=== PATIENT | female | born 1960 | race Hispanic/Latino ===

== ENCOUNTER → 2017-07-23 | Outpatient (CLI) | payer BC | END | disposition home or self-care (01) | LOC: RAH 13:49 | PROVIDERS: ATTEND Physical Medicine & Rehabilitation | DX: M50.122 Cervical disc disorder at C5-C6 level with radiculopathy (principal); M50.123 Cervical disc disorder at C6-C7 level with radiculopathy | CPT/HCPCS: 72141 ==

== ENCOUNTER → 2020-04-18 | Outpatient (CLI) | payer BC | END | disposition home or self-care (01) | LOC: RAH 08:45 | PROVIDERS: ATTEND Physical Medicine & Rehabilitation | DX: M50.122 Cervical disc disorder at C5-C6 level with radiculopathy (principal); M48.02 Spinal stenosis, cervical region | CPT/HCPCS: 72141 ==